=== PATIENT | female | born 1980 | race Caucasian/White ===

== ENCOUNTER 2023-03-17 09:47 | Outpatient (CLI) | payer BC ==
[~2023-03-17] VITALS: Ht 165.1 cm; Wt 85.5 kg
[2023-03-17 10:11] VITALS: BP 110/64
[2023-03-17] MEDS ORDERED: CETI-24 PO (10:30)
[2023-03-17] MEDS ORDERED: FERR325T3 PO (10:30)
[2023-03-17] MEDS ORDERED: PRENTAB9 PO (10:30)
[2023-03-17] MEDS ORDERED: LEVE250T5 PO ×2 (10:35)
[2023-03-17] MEDS ORDERED: PEPC1TAB5 PO (10:35)
[2023-03-17] MEDS ORDERED: LAMO100T80 PO (10:35)
[2023-03-17] MEDS ORDERED: HOME MED LIST COMPLETE! XX SCH (10:40)
[2023-03-17 11:17] VITALS: BP 104/58
[2023-03-17 11:56] VITALS: BP 107/67
== END 2023-03-17 12:55 | disposition home or self-care (01) ==
LOC: M LDO 09:47
PROVIDERS: ATTEND Specialist
DX: O26.853 Spotting complicating pregnancy, third trimester (principal); O99.843 Bariatric surgery status complicating pregnancy, third trimester; O32.1XX9 Maternal care for breech presentation, other fetus; O09.513 Supervision of elderly primigravida, third trimester; Z3A.28 28 weeks gestation of pregnancy
CPT/HCPCS: 59025; 76815; G0463

== ENCOUNTER → 2025-02-13 | Outpatient (CLI) | payer OTHER, MEDICAID ==
[~2025-02-13] MED LIST: CETI-24 PO; FERR325T3 PO; LAMO100T80 PO; LEVE250T5 PO; PEPC1TAB5 PO; PRENTAB9 PO
[2025-02-13 11:14] LABS: BASO % 0.3 % (0.0-1.0); EOS % 0.5 % (0.0-3.0); HEMATOCRIT 41.2 % (36.0-47.0); HEMOGLOBIN 13.3 g/dl (12.0-15.5); LYMPH # 1.4 10^3/uL (1.5-5.0); LYMPH % 23.2 % (24.0-44.0); MEAN CORPUSCULAR HEMOGLOBIN 26.9 pg (27.0-33.0); MEAN CORPUSCULAR HGB CONC 32.3 g/dl (32.0-36.5); MEAN CORPUSCULAR VOLUME 83.4 fl (80.0-96.0); MONO # 0.3 10^3/uL (0.0-0.8); MONO % 4.6 % (2.0-8.0); NEUTROPHILS # 4.3 10^3/uL (1.5-8.5); NEUTROPHILS % 71.1 % (36.0-66.0); PLATELET COUNT, AUTOMATED 294 10^3/uL (150-450); RED BLOOD COUNT 4.94 10^6/uL (4.00-5.40); WHITE BLOOD COUNT 6.1 10^3/uL (4.0-10.0)
[2025-02-13 11:22] LABS: ERYTHROCYTE SEDIMENTATION RATE 36 mm/hr (0-20)
[2025-02-13 11:34] LABS: ALKALINE PHOSPHATASE 94 U/L (35-104); ALT/SGPT 19 U/L (7.0-40); AST/SGOT 13 U/L (<34); BILIRUBIN,TOTAL 0.3 MG/DL (0.3-1.2); BLOOD UREA NITROGEN 6 MG/DL (9-23); CARBON DIOXIDE LEVEL 25 MMOL/L (20-31); CHLORIDE LEVEL 105 MMOL/L (98-107); CREATININE FOR GFR 0.69 MG/DL (0.55-1.30); GLOMERULAR FILTRATION RATE > 60.0 (>58); GLUCOSE, FASTING 98 MG/DL (60-100); POTASSIUM SERUM 4.2 MMOL/L (3.5-5.1); SODIUM LEVEL 140 MMOL/L (136-145); TOTAL PROTEIN 6.2 G/DL (5.7-8.2)
[2025-02-13 11:36] LABS: COMPLEMENT C3 168.4 MG/DL (90.0-170.0); COMPLEMENT C4 27.8 MG/DL (12-36); RHEUMATOID FACTOR QUANT 5.6 IU/ML (<14); THYROID STIMULATING HORMONE 2.042 uIU/ML (0.55-4.78); THYROXINE (T4) 12.9 UG/DL (4.5-10.9)
[2025-02-13 11:39] LABS: THYROID PEROXIDASE ANTIBODY 32 U/ML (<60.0); TOTAL T3 205.5 NG/DL (60.0-181.0)
== END ==
LOC: M LAB 09:59
PROVIDERS: ATTEND Allergy & Immunology Allergy
DX: L50.1 Idiopathic urticaria (principal)